=== PATIENT | female | born 1970 | race Two or more races ===

== ENCOUNTER 2019-09-19 19:44 | Emergency (ER) | payer MEDICAID, OTHER ==
[~2019-09-19] VITALS: Ht 165.1 cm; Wt 107.7 kg
[2019-09-19] MEDS: ACETAMINOPHEN/CODEINE#3 (300/30mg) TAB PO ONE (22:57)
[2019-09-19 23:08] VITALS: BP 126/71
== END 2019-09-19 23:34 | disposition home or self-care (01) ==
LOC: ER 19:44
DX: J06.9 Acute upper respiratory infection, unspecified (principal)